=== PATIENT | male | born 1950 | race Caucasian/White ===

== ENCOUNTER 2016-10-24 06:32 | Day surgery (SDC) | payer OTHER ==
[~2016-10-24] VITALS: Ht 170.2 cm; Wt 71.1 kg
[~2016-10-24 06:32] MED LIST: ACID REDUCER150 MG PO; ATORVASTATIN CA40 MG PO; CHLORTHALIDONE25 MG PO; LISINOPRIL10 MG PO; METFORMIN HCL500 MG PO; VITAMIN B121000 CR PO; VITAMIN D-31000 UNIT PO
--- NOTE | 2016-10-24 08:21 | Provider's Discharge Care Plan ---
Problem, Goal, Plan Problem List 1. S/P colonoscopy Goals: Screening Instructions: Follow up as needed, Take meds as directed, high fiber diet
--- NOTE | 2016-10-24 08:21 | Provider's Discharge Care Plan ---
Problem, Goal, Plan Problem List 1. S/P colonoscopy Goals: Screening Instructions: Follow up as needed, Take meds as directed, high fiber diet
--- NOTE | 2016-10-24 08:46 | OPERATIVE REPORT ---
DATE OF SURGERY: 10/24/2016 SURGEON: David Rodriguez III, MD CONDITIONING YARD SUPERVISOR: None. PREOPERATIVE DIAGNOSIS: 1. Screening colonoscopy POSTOPERATIVE DIAGNOSIS: 1. Sigmoid diverticulosis PROCEDURE PERFORMED: 1. Colonoscopy ANESTHESIA: TIVA. INDICATIONS: The patient is a 65-year-old asymptomatic male scheduled for a screening colonoscopy. Last colonoscopy was in 2005 and noted to have sigmoid diverticulosis at the time. SURGICAL FINDINGS: Normal-appearing cecum, ascending, transverse, and descending colon. The patient was noted to have scattered sigmoid diverticulosis. The rectal vault appeared grossly normal. SURGICAL TECHNIQUE: The patient was brought to the operating room and placed in the left lateral decubitus position, where he was administered TIVA and monitored closely by anesthesia. After proper anesthesia had taken effect, a digital rectal examination revealed no masses or stenosis. This was followed by the passage of a fiberoptic video flexible Olympus colonoscope, which, without difficulty, negotiated to the cecum. The cecum was identified by anatomical landmarks and anterior abdominal wall ballottement. On withdrawing the scope, the aforementioned findings noted. The scope was then withdrawn into the rectal vault, retroflexed, good view of the rectal vault obtained. No other pathology identified. The scope was completely withdrawn. The patient tolerated the procedure well and was transferred to the recovery room in stable condition. There were no intraoperative or anesthetic complications.
[2016-10-24 09:51] VITALS: BP 116/77
== END 2016-10-24 10:00 | disposition home or self-care (01) ==
LOC: OR SRH 06:32 → SCU SRH 06:33 → OR SRH 08:15
PROVIDERS: Specialist
PROC: 0DJD8ZZ Inspection of Lower Intestinal Tract, Via Natural or Artificial Opening Endoscopic (ICD-10-PCS; principal; 2016-10-24 08:15)
DX: Z12.11 Encounter for screening for malignant neoplasm of colon (principal); K57.30 Diverticulosis of large intestine without perforation or abscess without bleeding; I10 Essential (primary) hypertension; E11.9 Type 2 diabetes mellitus without complications; Z79.84 Long term (current) use of oral hypoglycemic drugs
CPT/HCPCS: 29229; 29240; 50004; 60001; 83526